=== PATIENT | male | born 1965 | race Hispanic/Latino ===

== ENCOUNTER 2024-06-13 14:31 | Emergency (ER) | payer OTHER, MEDICARE ==
[~2024-06-13] VITALS: Ht 170.2 cm; Wt 148.8 kg
[~2024-06-13 14:31] MED LIST: ALPR2TAB7 PO; CITA-107 PO; FURO20TA6 PO; INSU100I22 SQ; LATA2.5D14 OU; LEVO500T2 PO; LEVO50TA11 PO; LISI1TAB49 PO; METF-445 PO; NEED1DIS MC; POTA-364 PO; SITA100T12 PO
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
--- NOTE | 2024-06-13 14:50 | NUR ---
C-COLLAR WAS PLACED UPON ARRIVAL. REFER TO TRAUMA FLOW SHEET
--- NOTE | 2024-06-13 14:59 | EKG ---
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
[2024-06-13] MEDS: ketOROlac 30MG VIAL (30MG/ML) IM ONE (15:13)
--- NOTE | 2024-06-13 15:42 | NUR ---
C-COLLAR WAS REMOVED PER DR. LU
--- NOTE | 2024-06-13 15:48 | HMCIMG ---
Exam Type: SHOULDER COMP 2+VWS RT Clinical Information: cp Comparison: None FINDINGS: The examination is unremarkable. Specifically, the glenohumeral and acromioclavicular joints are preserved. Visualized portions of the humerus, the scapula, and the clavicle as well as the upper ribcage are unremarkable. No pulmonary pathology is noted in the visualized portions of the upper lobe. The soft tissues are preserved. There are no other gross abnormalities. IMPRESSION: NORMAL EXAMINATION.
[2024-06-13] MEDS: teTANUS/diphthERIA TOXOID [ADULT] 0.5 ML VIAL IM ONE (15:51)
--- NOTE | 2024-06-13 15:58 | HMCIMG ---
Exam Type: CHEST 1VW Clinical Information: cp Comparison: None Findings: The lungs are clear of infiltrates. The heart is enlarged. Bony and soft tissue structures of the chest wall are unremarkable. IMPRESSION: Cardiomegaly. Clear lungs.
[2024-06-13] MEDS ORDERED: NAPR-1194 PO (16:09)
[2024-06-13] MEDS ORDERED: METH-662 PO (16:09)
[2024-06-13 16:30] VITALS: BP 144/80; PULSE 60; RESP 20; TEMP 97.7; O2SAT 99
== END 2024-06-13 16:30 | disposition home or self-care (01) ==
LOC: EDH 14:31
DX: S46.911A Strain of unspecified muscle, fascia and tendon at shoulder and upper arm level, right arm, initial encounter (principal); R07.89 Other chest pain; M54.2 Cervicalgia; Z79.84 Long term (current) use of oral hypoglycemic drugs; Z79.890 Hormone replacement therapy; Z79.899 Other long term (current) drug therapy; V47.9XXA Unspecified car occupant injured in collision with fixed or stationary object in traffic accident, initial encounter; Y93.89 Activity, other specified; Y92.410 Unspecified street and highway as the place of occurrence of the external cause; Y99.9 Unspecified external cause status
CPT/HCPCS: 99284; 71045; 90714; 73030; 96372; 90471; 93005; J1885